=== PATIENT | male | born 1965 | race Caucasian/White ===

== ENCOUNTER 2018-10-23 22:49 | Emergency (ER) | payer BC ==
--- NOTE | 2018-10-24 00:21 | ED ---
Upper Extremity Pain - HPI Summary HPI Summary: Pt is a 53 y/o M presenting to the ED with a chief complaint of L shoulder pain onset about 1 week ago. A battery fell from a light onto his shoulder, causing immediate pain through his arm. The pain is getting worse gradually, and he has not taken anything besides tylenol. 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 - History of Current Complaint Chief Complaint: EDShouldKatrinlaSameer Stated Complaint: LEFT SHOULDER INJURY Time Seen by Provider: 10/24/18 00:09 Hx Obtained From: Patient Mechanism Of Injury: Direct Blow Onset/Duration: Started Days Ago, Still Present Timing: Constant, Lasting Days Severity Initially: Mild Severity Currently: Moderate Pain Location: Shoulder - left Character: Sharp Aggravating Factor(s): Movement, Lifting Alleviating Factor(s): Rest, Ice Associated Signs & Symptoms: Positive: Other - decreased ROM. Negative: Fever - Allergies/Home Medications Allergies/Adverse Reactions: Allergies Allergy/AdvReac Type Severity Reaction Status Date / Time amlodipine Allergy Swelling Verified 10/23/18 22:57 Of Face,Lips,& Throat PMH/Surg Hx/FS Hx/Imm Hx Previously Healthy: No Endocrine/Hematology History: Reports: Hx Diabetes Cardiovascular History: Reports: Hx Hypertension Infectious Disease History: No Infectious Disease History: Denies: Traveled Outside the [place] in Last 30 Days - Family History Known Family History: Negative: Blood Disorder - Social History Alcohol Use: Daily - recovering alcoholic Alcohol Amount: last drink today 1700 Hx Substance Use: Yes Substance Use Type: Reports: Prescribed - opioids Review of Systems Negative: Fever Positive: Myalgia All Other Systems Reviewed And Are Negative: Yes Physical Exam - Summary Physical Exam Summary: VITAL SIGNS: Reviewed. GENERAL: Patient is a well-developed and nourished male who is lying comfortable in the stretcher. Patient is not in any acute respiratory distress. HEAD AND FACE: No signs of trauma. No ecchymosis, hematomas or skull depressions. No sinus tenderness. EYES: PERRLA, EOMI x 2, No injected conjunctiva, no nystagmus. EARS: Hearing grossly intact. Ear canals and tympanic membranes are within normal limits. MOUTH: Oropharynx within normal limits. NECK: Supple, trachea is midline, no adenopathy, no JVD, no carotid bruit, no c- spine tenderness, neck with full ROM. CHEST: Symmetric, no tenderness at palpation LUNGS: Clear to auscultation bilaterally. No wheezing or crackles. CVS: Mild tachycardia, S1 and S2 present, no murmurs or gallops appreciated. ABDOMEN: Soft, non-tender. No signs of distention. No rebound no guarding, and no masses palpated. Bowel sounds are normal. EXTREMITIES: Mild decreased ROM in L shoulder due to pain. Tenderness over L shoulder superiorly. NEURO: Alert and oriented x 3. No acute neurological deficits. Speech is normal and follows commands. SKIN: Dry and warm Triage Information Reviewed: Yes Vital Signs On Initial Exam: Initial Vitals Temp Pulse Resp BP Pulse Ox 99.5 F 96 16 165/94 95 10/23/18 22:51 10/23/18 22:51 10/23/18 22:51 10/23/18 22:51 10/23/18 22:51 Vital Signs Reviewed: Yes Diagnostics - Vital Signs Vital Signs Temp Pulse Resp BP Pulse Ox 10/23/18 22:51 99.5 F 96 16 165/94 95 - Laboratory Lab Statement: Any lab studies that have been ordered have been reviewed, and results considered in the medical decision making process. - Radiology L shoulder x-ray Radiology Interpretation Completed By: ED Physician Summary of Radiographic Findings: No acute process. Pending official radiology report. Course/Dx - Course Course Of Treatment: Pt is a 53 y/o M presenting to the ED with a chief complaint of L shoulder pain onset about 1 week ago. The pain is getting worse gradually, and he has only taken tylenol due to previous opiate addiction. The pt is a recovering alcoholic and last had a drink 10/23/18 at 1700. Shoulder x- ray came back negative. The pt will be discharged with a dx of shoulder pain. - Diagnoses Provider Diagnoses: Shoulder pain, left Discharge - Sign-Out/Discharge Documenting (check all that apply): Patient Departure Patient Received Moderate/Deep Sedation with Procedure: No - Discharge Plan Condition: Stable Disposition: HOME Referrals: [facility] [Outside] Additional Instructions: RETURN TO THE EMERGENCY DEPARTMENT FOR CHANGING OR WORSENING SYMPTOMS. FOLLOW UP WITH PCP IN 1-2 DAYS. - Attestation Statements Document Initiated by Scribe: Yes Documenting Scribe: Khadijah Atkinson Provider For Whom Scribe is Documenting (Include Credential): Sabine Fraser MD. Scribe Attestation: Khadijah Wright, scribed for Sabine Fraser MD. on 10/24/18 at 0059. Status of Scribe Document: Ready
[2018-10-24] MEDS ORDERED: Cyclobenzaprine TAB* 10 MG PO ONE (00:26)
[2018-10-24] MEDS ORDERED: Ketorolac INJ* 30 MG/ML 1 ML VIAL IM ONE (00:26)
[2018-10-24 01:16] VITALS: BP 149/79
== END 2018-10-24 01:14 | disposition home or self-care (01) ==
LOC: ED 22:49
DX: M25.512 Pain in left shoulder (principal); I10 Essential (primary) hypertension; E11.9 Type 2 diabetes mellitus without complications
CPT/HCPCS: 96372; 99282; A9270-GY; J1885